=== PATIENT | female | born 1960 | race African-American/Black ===

== ENCOUNTER → 2016-11-07 | Outpatient (CLI) | payer OTHER ==
--- NOTE | ~2016-11-07 | 2DMMODE ---
[facility] [employer] [place] [address] 2 D/M-MODE ECHOCARDIOGRAM Name: TITO BRAXTON Room #: REG [facility]#: [id number] Admission: 11/07/16 Attend Phys: Faisal Hoffmann MD Discharge: Date of : 58 Date of Service: 11/07/16 1304 Report #: [id number] THIS REPORT FOR: //name// Transthoracic Echocardiography Ordering physician: Faisal Hoffmann Referring physician: Genaro Kemp Parveen Freelance Programmer/App Developer: LOUISE Rivas Indications/History: CVA. BP: 132 / HR: 66bpm Height: 61in Weight: 204.6lb 82 Study data: M-mode, complete 2D, complete spectral Doppler, and color Doppler. Location: Echo laboratory. Routine. Image quality was good. Intravenous contrast (agitated saline) was administered. 2D measurements Normal Normal LVID ED 38.4mm 36-57 IVS ED 12.9mm 6-11 LVID ES 27.1mm 23-40 LVPW ED 12mm 6-11 LA volume 20ml/m2 16-28 AoRoot diam 27.9mm 21-37 index ED LVOT diameter 19mm 18-23 Findings: Left ventricle: The cavity size was normal. Wall thickness was increased in a pattern of mild LVH. Systolic function was normal. The estimated ejection fraction was in the range of 55% to 60%. Wall motion was normal. Right ventricle: The cavity size was normal. Systolic function was normal. Right atrium: The atrium was normal in size. Left atrium: The atrium was normal in size. Volume index: 20ml/m2 (S). Atrial septum: No defect or patent foramen ovale was identified by contrast bubble injection. [address] [address] 2 D/M-MODE ECHOCARDIOGRAM Name: TITO BRAXTON Room #: REG [facility]#: [id number] Admission: 11/07/16 Attend Phys: Faisal Hoffmann MD Discharge: Date of : 58 Date of Service: 11/07/16 1304 Report #: [id number] Aortic valve: Structurally normal valve. Trileaflet. Doppler: There was no stenosis. No regurgitation. Peak velocity: 88.7cm/s (S). Mitral valve: Structurally normal valve. Doppler: There was no evidence for stenosis. No regurgitation. Peak E-wave velocity: 54.6cm/s. Peak A-wave velocity: 62.1cm/s. Tricuspid valve: Structurally normal valve. Doppler: There was no evidence for stenosis. Trivial regurgitation. Regurgitant peak velocity: 239.5cm/s. Peak RV-RA gradient: 23mm Hg (S). Pulmonic valve: Structurally normal valve. Doppler: There was no evidence for stenosis. No regurgitation. Pericardium: A small pericardial effusion was identified. Aorta: Aortic root: The aortic root was normal in size. Pulmonary artery: Systolic pressure was estimated to be 28mm Hg. Diastolic function: Doppler parameters are consistent with abnormal left ventricular relaxation (grade 1 diastolic dysfunction). Systemic veins: Inferior vena cava: The vessel was normal in size; the respirophasic diameter changes were in the normal range (= 50%). Conclusions 1. Left ventricle: Systolic function was normal. The estimated ejection fraction was in the range of 55% to 60%. Wall motion was normal. Doppler parameters are consistent with abnormal left ventricular relaxation (grade 1 diastolic dysfunction). 2. Atrial septum: No defect or patent foramen ovale was identified by contrast bubble injection. 3. Aortic valve: Structurally normal valve. Trileaflet. There was no stenosis. No regurgitation. 4. Mitral valve: Structurally normal valve. No regurgitation. 5. Pericardium, extracardiac: A small pericardial effusion was identified. [facility] [address] [place] [address] 2 D/M-MODE ECHOCARDIOGRAM Name: TITO BRAXTON Room #: REG [facility]#: [id number] Admission: 11/07/16 Attend Phys: Faisal Hoffmann MD Discharge: Date of : 58 Date of Service: 11/07/16 1304 Report #: [id number] 6. Pulmonary arteries: Systolic pressure was estimated to be 28mm Hg. <ELECTRONICALLY SIGNED> By: Erasmo Mccoy MD, FACC 11/07/16 1431 1304 30 Erasmo Mccoy MD, FACC /red
== END ==
LOC: MRI 10:46
DX: I63.9 Cerebral infarction, unspecified (principal); G45.9 Transient cerebral ischemic attack, unspecified; R51 Headache; R42 Dizziness and giddiness

== ENCOUNTER → 2017-07-25 | Outpatient (CLI) | payer OTHER ==
[2017-07-25 09:05] LABS: CREATININE 1.3 mg/dL (0.6-1.0)
== END ==
LOC: CAT 08:02
PROVIDERS: Nurse Practitioner
DX: R07.9 Chest pain, unspecified (principal); R91.1 Solitary pulmonary nodule

== ENCOUNTER → 2017-08-07 | Outpatient (CLI) | payer OTHER | LOC: RAD 10:39 | DX: R06.02 Shortness of breath (principal); Z86.2 Personal history of diseases of the blood and blood-forming organs and certain disorders involving the immune mechanism ==

== ENCOUNTER → 2017-09-22 | Outpatient (CLI) | payer OTHER | LOC: MRI 09-08 13:49 | DX: I63.9 Cerebral infarction, unspecified (principal); R91.1 Solitary pulmonary nodule ==

== ENCOUNTER → 2017-09-25 | Outpatient (CLI) | payer OTHER | LOC: CAT 11:50 | DX: Z13.820 Encounter for screening for osteoporosis (principal); R91.1 Solitary pulmonary nodule; E28.8 Other ovarian dysfunction; Z78.0 Asymptomatic menopausal state ==

== ENCOUNTER → 2018-02-05 | Outpatient (CLI) | payer OTHER | LOC: RAD 06:17 | DX: R91.1 Solitary pulmonary nodule (principal); Z88.1 Allergy status to other antibiotic agents ==

== ENCOUNTER → 2018-02-20 | Outpatient (CLI) | payer OTHER | LOC: ULTRA 10:29 | DX: E01.0 Iodine-deficiency related diffuse (endemic) goiter (principal); E03.9 Hypothyroidism, unspecified; E04.9 Nontoxic goiter, unspecified ==

== ENCOUNTER → 2019-01-15 | Outpatient (CLI) | payer OTHER ==
[2019-01-15 14:38] LABS: CREATININE 1.2 mg/dL (0.6-1.0)
== END ==
LOC: CAT 13:52
PROVIDERS: Nurse Practitioner
DX: K57.92 Diverticulitis of intestine, part unspecified, without perforation or abscess without bleeding (principal); N28.89 Other specified disorders of kidney and ureter

== ENCOUNTER 2019-01-23 02:35 | Emergency (ER) | payer OTHER ==
[~2019-01-23] VITALS: Ht 154.9 cm; Wt 83.5 kg
[2019-01-23 03:07] LABS: URINE BILIRUBIN NEGATIVE (Negative); URINE BLOOD TRACE (Negative); URINE CLARITY CLEAR; URINE COLOR YELLOW; URINE GLUCOSE-RANDOM* NEGATIVE (Negative); URINE KETONES NEGATIVE (Negative); URINE NITRITE-REFLEX NEGATIVE (Negative); URINE PROTEIN (DIPSTICK) 1+ (Negative); URINE UROBILINOGEN 0.2 E.U./dl (0.2-1.0)
[2019-01-23 03:16] LABS: URINE LEUKOCYTES-REFLEX 1+ (Negative)
[2019-01-23 03:24] LABS: SQUAMOUS 0-3 Few /LPF (0-3); URINE WBC-REFLEX 6-15 Few /HPF (0-5)
[2019-01-23 03:25] LABS: BACTERIA-REFLEX 1-9 Few /HPF (None Seen); CALCIUM OXALATE >10 Many /LPF (None Seen); CASTS None Seen /LPF (None Seen); MUCUS 0-3 Light strn/LPF (None Seen); URINE RBC 0-2 Rare /HPF (0-2)
[2019-01-23 03:47] LABS: BASOPHILS 0.5 % (0.0-2.0); HEMATOCRIT 35.9 % (37.0-47.0); HEMOGLOBIN 12.3 gm/dL (12.0-15.0); LYMPHOCYTES 9.8 % (24.0-44.0); MCH 30.6 pg (26.0-34.0); MCHC 34.4 g/dL (28.0-37.0); MCV 88.8 fL (80.0-100.0); MONOCYTES 11.5 % (1.0-8.0); PLATELET COUNT 177 thou/uL (150-400); POLYS 77.2 % (36.0-66.0); RBC 4.04 mil/uL (4.20-5.00); RDW 13.2 % (10.5-14.5); WBC 5.1 thou/uL (4.0-11.0)
[2019-01-23 03:58] LABS: CALCIUM 9.9 mg/dL (8.5-10.1); CREATININE 1.5 mg/dL (0.6-1.0); POTASSIUM 4.2 mmol/L (3.5-5.1)
[2019-01-23] MEDS ORDERED: ZOFRAN ODT4 MG PO (06:05)
[2019-01-23 06:06] VITALS: BP 100/51
== END 2019-01-23 06:21 | disposition home or self-care (01) ==
LOC: ER 02:35
PROVIDERS: Emergency Medicine
DX: R50.9 Fever, unspecified (principal); R52 Pain, unspecified; R19.7 Diarrhea, unspecified

== ENCOUNTER → 2019-11-03 | Outpatient (CLI) | payer OTHER ==
[~2019-11-03] MED LIST: AMARYL4 MG PO; CRESTOR20 MG PO; LISINOPRIL40 MG PO; MAXZIDE-25 MG1 EACH PO; OMEPRAZOLE40 MG PO; SYNTHROID300 MCG PO; ZOFRAN ODT4 MG PO
== END ==
LOC: ULTRA 11:11
DX: N95.0 Postmenopausal bleeding (principal)

== ENCOUNTER 2019-12-07 07:05 | Day surgery (SDC) | payer OTHER ==
[~2019-12-07] VITALS: Ht 154.9 cm; Wt 83.5 kg
--- NOTE | ~2019-12-07 | O ---
[facility] [place] [address] OPERATIVE REPORT Name: TITO BRAXTON Room #: DEP [facility].#: [id number] Admission: 12/07/19 Attend Phys: Silvana Foster DO Discharge: 12/07/19 Date of : 58 Report #: [id number] THIS REPORT FOR: cc: Genaro Kemp MD, Neal A. MD Farris, Kari C. DO ~ CC: Silvana Kemp DATE OF SERVICE: 12/07/2019 PREOPERATIVE DIAGNOSES: 1. Postmenopausal bleeding. 2. Endometrial polyps. POSTOPERATIVE DIAGNOSES: 1. Postmenopausal bleeding. 2. Endometrial polyps. 3. Possible uterine fibroid. OPERATIVE PROCEDURE: Hysteroscopy, dilatation and curettage, polypectomy with MyoSure, possible myomectomy. SURGEON: Silvana Foster M.D. ANESTHESIA: General. INTRAVENOUS FLUIDS: 800 mL. URINE OUTPUT: 150 mL. ESTIMATED BLOOD LOSS: 10 mL. HYSTEROSCOPIC FLUID IN: 2420 mL. HYSTEROSCOPIC DEFICIT: 350 mL. COMPLICATIONS: None. DESCRIPTION OF PROCEDURE: The patient was taken to the operating room where general anesthesia was administered and found to be adequate. She was then prepped and draped in normal sterile fashion in dorsal lithotomy position. A red rubber catheter was placed in the patient's bladder. The bladder was drained of urine. A weighted speculum was placed in the patient's vagina. The anterior lip of the cervix was identified and grasped with a single tooth tenaculum. The cervix was gently dilated with graduated Hegar dilators. [facility] [address] [place] [address] OPERATIVE REPORT Name: TITO BRAXTON Room #: DEP [facility].#: [id number] Admission: 12/07/19 Attend Phys: Silvana Foster DO Discharge: 12/07/19 Date of : 58 Report #: [id number] uterus was gently sounded to approximately 9 cm. A 5.5 mm hysteroscope was then inserted through the cervix and gently advanced into the uterus. Multiple uterine polyps were noted as well as possible uterine fibroid at the posterior aspect of the uterus. Using the MyoSure instrument, it was inserted through the operative channel. The hysteroscope gently advanced into the uterus and polypectomy was performed. The area that was noted possibly reasonable a fibroid was also resected using the MyoSure device. Once all polypoid tissue was resected, the MyoSure was removed from the operative channel of the hysteroscope. Bilateral ostia were able to now be visualized in the uterus. Images were obtained. The hysteroscope was removed from the patient's uterus. The tenaculum was removed from the patient's cervix. Excellent hemostasis was noted at the tenaculum site. The weighted speculum was removed from the patient's vagina. The patient tolerated the procedure well. Sponge, lap and instrument counts were reported as correct and the patient was taken to the recovery room in stable condition. By: [id number] Silvana Foster DO /nt
[~2019-12-07 07:05] MED LIST changes: +LEVOXYL200 MCG PO
[2019-12-07 07:42] VITALS: BP 130/74
[2019-12-07 08:01] LABS: HEMOGLOBIN 13.7 gm/dL (12.0-15.0)
[2019-12-07 08:02] LABS: CALCIUM 10.6 mg/dL (8.5-10.1); CREATININE 1.2 mg/dL (0.6-1.0); POTASSIUM 4.3 mmol/L (3.5-5.1)
[2019-12-07] MEDS ORDERED: IBUPROFEN 600600 M1 PO (11:38)
[2019-12-07] MEDS ORDERED: TYLENOL WITH CO1 TA1 PO (11:38)
[2019-12-07 11:56] VITALS: BP 130/74
--- NOTE | 2019-12-09 13:08 | PATH ---
[facility] [place] [address] PATHOLOGY RPT PROCEDURE Name: DIPTI BRAXTON Kaylyn Room #: DEP [facility]..#: [id number] Admission: 12/07/19 Date of : 58 Discharge: 12/07/19 Report #: [id number] Path Case #: [id number] [facility] Accession Number: [id number] . 01 Material submitted: . uterus - POLYPS OF THE UTERUS . 01 Clinical history: . Abnormal uterine and vaginal bleeding, polyp of corpus uteri . 02 Diagnosis: Endomyometrium "polyps of uterus": - Polypoid endometrium revealing disordered proliferative phase without any evidence of hyperplasia or malignancy. . (SHA:rajesh; 12/09/2019) S 12/09/2019 0859 Local . 02 Electronically signed: . Calixto Burns MD, Pathologist NPI- [id number] . 01 Gross description: . The specimen is received in formalin, labeled "Perez, Dipti, polyps of the uterus" and consists of multiple fragments of pink-quintana tissue measuring 2.5 x 2.2 x 0.5 cm in aggregate which are entirely submitted in A1. (SDY; 12/07/2019) SYU/SYU 12/07/2019 1818 Local . 02 Pathologist provided ICD-10: N85.9 . 02 CPT . 155848 Specimen Comment: A courtesy copy of this report has been sent to [phone], [phone] Specimen Comment: [phone] Specimen Comment: Report sent to DR BRAGG Performed at: [address], [place], [place] [id number] MD Bogdan Pratt MD Phone: [phone] Performed at: [address] [id number] MD Susan Mejia MD Phone: [phone]
== END 2019-12-07 12:35 | disposition home or self-care (01) ==
LOC: OR 07:05 → TBA 07:06 → OR 08:54
PROVIDERS: Obstetrics & Gynecology
DX: N84.0 Polyp of corpus uteri (principal); N95.0 Postmenopausal bleeding; I10 Essential (primary) hypertension; E78.00 Pure hypercholesterolemia, unspecified; E11.9 Type 2 diabetes mellitus without complications; K21.9 Gastro-esophageal reflux disease without esophagitis; E03.9 Hypothyroidism, unspecified; Z98.890 Other specified postprocedural states; Z79.899 Other long term (current) drug therapy; Z87.19 Personal history of other diseases of the digestive system; Z88.8 Allergy status to other drugs, medicaments and biological substances
CPT/HCPCS: 50010; 50101; 50386; 54171; 54172; 54173; 62110; 62900; 70005

== ENCOUNTER → 2021-06-14 | Outpatient (CLI) | payer OTHER ==
[~2021-06-14] MED LIST changes: +IBUPROFEN 600600 M1 PO; +TYLENOL WITH CO1 TA1 PO
== END ==
LOC: SJCVCIMAG 03-30 07:32
PROVIDERS: ATTEND Internal Medicine
DX: R00.0 Tachycardia, unspecified (principal); R06.09 Other forms of dyspnea; I10 Essential (primary) hypertension; E11.9 Type 2 diabetes mellitus without complications; R53.83 Other fatigue